=== PATIENT | female | born 1970 | race Caucasian/White ===

== ENCOUNTER → 2016-11-24 | Outpatient (CLI) | payer BC ==
--- NOTE | ~2016-11-24 | CR63 ---
[facility] A Service of [facility] & [facility] RADIOLOGY TEXT RESULTS PATIENT: ANISHA PERSAUD LOCATION: [facility] : 68 UNIT #: [id number] AGE: [address]: SONIA SEBASTIAN APRN SEX: F ORDER DR: [id number] [facility] [address] [place], [place] [address] [id number] O MR#: [id number] Acc #: [id number] NAME: ANISHA PERSAUD : 1970 SEX: F STUDY DATE/TIME: 11/24/2016 11:16 UNIT: [facility] ROOM: STUDY DESCRIPTION: CR Chest 2 View Attending Physician: Sonia Sebastian Aprn Referring Physician: Sonia Sebastian Aprn Ordering Physician: Sonia Sebastian Aprn Primary Care Physician: Frank Delarosa M.D. MEDICAL IMAGING REPORT This report is preliminary unless electronic signature is present EXAM AP and lateral chest INDICATION Cough, congestion, and shortness of breath for 1 week. COMPARISON No comparison studies are available. FINDINGS There is some bilateral linear scarring or atelectasis in the lung bases. Heart size upper normal. Degenerative changes in the thoracic spine. IMPRESSION Linear scarring or atelectasis within the lung bases. Dictated by... Levi Pringle M.D. THIS IS AN ELECTRONICALLY VERIFIED REPORT Levi Pringle M.D. at 11/25/2016 7:35 AM CARRIE/troy TD: 11/24/2016 11:52 JOB #: [id number] MEDICAL IMAGING REPORT Page 1 of 1 COPY
== END | disposition home or self-care (01) ==
LOC: CRAD 10:58
DX: F17.200 Nicotine dependence, unspecified, uncomplicated (principal); J98.4 Other disorders of lung
CPT/HCPCS: 71020

== ENCOUNTER → 2016-12-13 | Outpatient (CLI) | payer BC ==
--- NOTE | ~2016-12-13 | MY11 ---
[facility] A Service of [facility] RADIOLOGY TEXT RESULTS PATIENT: ANISHA PERSAUD LOCATION: [facility] : 68 UNIT #: [id number] AGE: [address]: Frank Delarosa MD SEX: F ORDER DR: [id number] [facility] [address] [place], [place] [address] [id number] O MR#: [id number] Acc #: [id number] NAME: ANISHA PERSAUD : 1970 SEX: F STUDY DATE/TIME: 12/13/2016 11:40 UNIT: [facility] ROOM: STUDY DESCRIPTION: MY Mammogram Screening Dig Emmanuel Attending Physician: Frank Delarosa M.D. Referring Physician: Frank Delarosa M.D. Ordering Physician: Frank Delarosa M.D. Primary Care Physician: Frank Delarosa M.D. MEDICAL IMAGING REPORT This report is preliminary unless electronic signature is present EXAM Digital screening mammogram, 12/13/16, [facility]. HISTORY 46-year-old woman, baseline mammogram. Positive family history, great-grandmother. COMPARISON None. FINDINGS Digital imaging of each breast was completed utilizing a two-view examination of each breast in craniocaudal and mediolateral-oblique projections. Review and interpretation of digital mammograms include a second review in conjunction with FDA-approved CAD device. There is a normal parenchymal presentation bilaterally consistent with the patient's age. There are no breast masses imaged and no parenchymal asymmetry is visualized. There are no suspicious microcalcifications and I see no focal architectural disturbance. IMPRESSION Negative screening digital mammogram. One-year followup recommended. Patients over the age of 40 are entered into a reminder system with target due date for the next mammogram. A result letter will also be sent to the patient. BIRADS: 1 Negative. Dictated by... [facility] A Service of [facility] & [facility] RADIOLOGY TEXT RESULTS PATIENT: ANISHA PERSAUD LOCATION: [facility] : 68 UNIT #: [id number] AGE: [address]: Frank Delarosa MD SEX: F ORDER DR: Malik Bruner M.D. THIS IS AN ELECTRONICALLY VERIFIED REPORT Malik Bruner M.D. at 12/14/2016 8:05 AM ALOK/ebenezer TD: 12/13/2016 18:18 JOB #: [id number] MEDICAL IMAGING REPORT Page 1 of 1 COPY
== END | disposition home or self-care (01) ==
LOC: CWCC 11:15
DX: Z12.31 Encounter for screening mammogram for malignant neoplasm of breast (principal); Z80.3 Family history of malignant neoplasm of breast
CPT/HCPCS: G0202